=== PATIENT | female | born 1990 | race Caucasian/White ===

== ENCOUNTER → 2019-06-14 11:20 | Outpatient (BNVA) | payer BC, SELFPAY | PROVIDERS: Family Provider Nurse Practitioner Family; Visit Provider Nurse Practitioner Women's Health | DX: O99.89 Other specified diseases and conditions complicating pregnancy, childbirth and the puerperium (principal); R82.71 Bacteriuria; Z28.3 Underimmunization status | CPT/HCPCS: 81000; 87086 ==

== ENCOUNTER → 2019-07-15 09:02 | Outpatient (BNVA) | payer BC, SELFPAY | PROVIDERS: Family Provider Nurse Practitioner Family; Visit Provider Obstetrics & Gynecology | DX: O99.89 Other specified diseases and conditions complicating pregnancy, childbirth and the puerperium (principal); Z3A.21 21 weeks gestation of pregnancy | CPT/HCPCS: 76805 ==

== ENCOUNTER → 2019-07-19 12:49 | Outpatient (BNVA) | payer BC, SELFPAY | PROVIDERS: Family Provider Nurse Practitioner Family; Visit Provider Obstetrics & Gynecology | DX: Z01.89 Encounter for other specified special examinations (principal) | CPT/HCPCS: 84315 ==

== ENCOUNTER → 2019-08-12 15:20 | Outpatient (BNVA) | payer BC, SELFPAY | PROVIDERS: Family Provider Nurse Practitioner Family; Visit Provider Obstetrics & Gynecology Female Pelvic Medicine and Reconstructive Surgery | DX: O99.89 Other specified diseases and conditions complicating pregnancy, childbirth and the puerperium (principal); Z28.3 Underimmunization status | CPT/HCPCS: 84315; 87086 ==

== ENCOUNTER → 2019-09-09 14:54 | Outpatient (BNVA) | payer BC, SELFPAY | PROVIDERS: Family Provider Nurse Practitioner Family; Visit Provider Obstetrics & Gynecology Female Pelvic Medicine and Reconstructive Surgery | DX: O26.892 Other specified pregnancy related conditions, second trimester (principal); Z67.91 Unspecified blood type, Rh negative; Z34.02 Encounter for supervision of normal first pregnancy, second trimester; Z34.03 Encounter for supervision of normal first pregnancy, third trimester; O99.89 Other specified diseases and conditions complicating pregnancy, childbirth and the puerperium; Z28.3 Underimmunization status; O26.899 Other specified pregnancy related conditions, unspecified trimester | CPT/HCPCS: 82950; 85027; 86850 ==

== ENCOUNTER → 2019-09-16 08:15 | Outpatient (BNVA) | payer BC, SELFPAY | PROVIDERS: Family Provider Nurse Practitioner Family; Visit Provider Obstetrics & Gynecology | DX: O99.810 Abnormal glucose complicating pregnancy (principal) | CPT/HCPCS: 82951; 82952 ==

== ENCOUNTER → 2019-11-04 13:16 | Outpatient (BNVA) | payer BC, SELFPAY | PROVIDERS: Family Provider Nurse Practitioner Family; Visit Provider Obstetrics & Gynecology | DX: Z34.03 Encounter for supervision of normal first pregnancy, third trimester (principal) | CPT/HCPCS: 84315; 87081 ==

== ENCOUNTER → 2019-11-26 14:09 | Outpatient (BNVA) | payer OTHER, SELFPAY | PROVIDERS: Family Provider Nurse Practitioner Family; Visit Provider Obstetrics & Gynecology | DX: Z34.03 Encounter for supervision of normal first pregnancy, third trimester (principal); Z3A.39 39 weeks gestation of pregnancy | CPT/HCPCS: 76816 ==

== ENCOUNTER 2019-11-30 04:10 | Outpatient (CLI) | payer OTHER, SELFPAY ==
[2019-11-30 04:38] VITALS: BP 140/76; PULSE 60
[2019-11-30 04:41] VITALS: BMI 30.1
[2019-11-30 05:08] VITALS: BP 121/75; PULSE 77
[2019-11-30 05:37] VITALS: BP 140/73; PULSE 67
[2019-11-30 06:07] VITALS: BP 0/0
[2019-11-30 06:09] VITALS: BP 133/73; PULSE 59
[2019-11-30 06:17] VITALS: BP 133/73; PULSE 59; RESP 17; TEMP 36.7
== END 2019-11-30 06:19 | disposition home or self-care (01) ==
LOC: OPOB 04:29 → OBGYN 04:29
PROVIDERS: Family Provider Nurse Practitioner Family; Visit Provider Obstetrics & Gynecology
DX: O26.899 Other specified pregnancy related conditions, unspecified trimester (principal); Z3A.00 Weeks of gestation of pregnancy not specified
CPT/HCPCS: 99211

== ENCOUNTER 2019-12-01 12:57 | Inpatient (IN) | payer OTHER, SELFPAY ==
[2019-12-01] VITALS (68 sets, daily range): BP systolic 0–150; BP diastolic 0–85; PULSE 57–88; RESP 16–18; TEMP 36.4–37.7; O2SAT 97–98; BMI 30.8
[2019-12-01 13:44] LABS: Basophils % 0.3 %; Eosinophils % 0.2 %; Hematocrit 35.2 % (37.0-47.0); Lymphocytes # 2.4 10^3/uL (0.8-4.8); Lymphocytes % 16.6 %; Mean Corpuscular HGB Conc 34.1 g/dL (30.0-36.0); Mean Corpuscular Hemoglobin 31.6 pg (28.0-34.0); Mean Corpuscular Volume 92.6 fL (81-99); Monocytes # 0.8 10^3/uL (0.2-0.9); Monocytes % 5.6 %; Neutrophils # 10.9 10^3/uL (1.8-7.7); Neutrophils % 75.8 %; Nucleated Red Blood Cells % 0 %; Platelet Count 220 10^3/cmm (130-400); Red Cell Distribution Width 12.6 % (12.1-15.1); White Blood Count 14.4 10^3/uL (4.0-10.0)
[2019-12-01] MEDS: lactated ringers 1,000 ML 999 ML IV ×2 (16:06→17:26)
--- NOTE | 2019-12-01 17:37 | P.ANESASSM_ITS ---
Pre-Anesthetic Assessment Pre-Anesthetic Assessment: Height/Weight: Height 1.78 m Weight 97.522 kg Temp Pulse Resp BP Pulse Ox 97.5 F L 80 17 111/65 97 12/01/19 14:42 12/01/19 17:33 12/01/19 14:42 12/01/19 17:33 12/01/19 17:18 Preop Diagnosis: IUP Proposed Procedure: epdiural Familial anesthetic complications: None Was Beta Ade taken within 24 hours: N/A Last intake: 1130 Social: Social History: No alcohol and No tobacco Exam: Pre-Anes Outpt Exam: alert, oriented x 3, clear to auscultation bilaterally and regular rate & rhythm Airway: Cervical ROM: WNL MP: 2 Dentition: Full Anesthetic Plan: ASA status: 2 Anesthesia: Regional (specify below) Risk of > 500 ml blood loss (7ml/kg in children): Yes, adequate IV access and fluids planned Meds/Allergies Current Medications: Current Medications Generic Name Dose Route Start Last Admin Trade Name Freq PRN Reason Stop Dose Admin Lactated Ringer's 1,000 mls @ 999 m ls/hr 12/01/19 12:54 12/01/19 17:26 Lactated Ringers IV 999 mls/hr .Q1H1M PRN Administration Per L&D Rescitati on Protocol Ropivacaine 200 mg in 100 mls @ 13 mls/hr 12/01/19 16:00 12/01/19 17:27 Naropin Premix EPIDURAL 13 mls/hr .Q7H42M BECKY Administration PFSH Anesthesia PFSH: Medical History Patient denies medical problems Denies history of: htn,dm,heart,lung,liver,kidney,thyroid,dvt/pe, herpes Partner without herpes history PCP: [facility] Surgical History History of dilation and curettage Dilation and curettage with suction in first trimester for missed ?by Dr. Potter Family History Grandfather Diabetes Paternal Hypertension maternal Heart disease maternal Mother Hypertension Social History Smoking and tobacco status: never smoked Alcohol intake: former Former alcohol use details: Socially, before finding out she was . Female Reproductive History: : 1 Data Anesthesia CBC & Chem 7: 12/01/19 13:05 Other Labs: Laboratory Results - last 48 hr 12/01/19 13:05 WBC 14.4 H RBC 3.80 L Hgb 12.0 Hct 35.2 L MCV 92.6 MCH 31.6 MCHC 34.1 RDW 12.6 Plt Count 220 MPV 12.0 H Neut % (Auto) 75.8 Lymph % (Auto) 16.6 [place] % (Auto) 5.6 Eos % (Auto) 0.2 Baso % (Auto) 0.3 Neut # (Auto) 10.9 H Lymph # (Auto) 2.4 [place] # (Auto) 0.8 Eos # (Auto) 0.0 Baso # (Auto) 0.0 Nucleated RBC % (auto) 0 Nucleated RBCs # 0.0 Cardiac Studies: No Data to Display
--- NOTE | 2019-12-01 17:38 | ANES.PROC ---
Anesthesia Procedures Procedure/Date: 12/01/19 Epidural: Time Out Performed: Yes Consents Signed: Procedure Consent Consent: requested by attending/covering physician, from patient, risks and benefits reviewed and patient agrees to proceed Lumbar Level: L3-L4 Epidural position: sitting Epidural procedure: sterile prep of area, 1% lidocaine to numb the area, 18 g needle, negative for paresthesia passed, neg for paresthesia, test dose given (3 ml), 1.5% xylocaine 1:200k epi (3 ml), placed PCEA, no systemic response, sterile dressing applied, L.U.D. no apparent complications and 0.2% Ropiavacaine @ mls/hr (13 mls/hr) Additional Comments: GRZEGORZ at 6 cm, threaded to 11 cm Dosed epidural w/ bupivicaine 0.25% 8 cc + fentanyl 100 mcg Patient had pain free contraction after bolus
[2019-12-01] MEDS: dextrose 5%-lactated ringers 1,000 ML 125 ML IV (21:13)
[2019-12-02] VITALS (53 sets, daily range): BP systolic 0–140; BP diastolic 0–76; PULSE 54–84; RESP 16–18; TEMP 36.6–37.9; O2SAT 97
[2019-12-02] MEDS: ondansetron 2 mg/ML SDV 2 mL 4 MG IVP (02:18)
[2019-12-02] MEDS: fentaNYL 50 mcg/mL INJ 2mL IV (02:43)
[2019-12-02] MEDS: acetaminophen 325 mg Tablet 650 MG PO (04:50)
[2019-12-02] MEDS: dextrose 5%-lactated ringers 1,000 ML 125 ML IV (05:08)
[2019-12-02] MEDS: oxytocin 30 UNIT/500 ML BAG 600 UNIT IV (08:16)
--- NOTE | 2019-12-02 08:30 | PM.DELIVERY ---
Delivery Note: Date of delivery: December 02, 2019 Pre-delivery diagnoses: Term Post-delivery diagnoses: Term delivered Procedure: Spontaneous vaginal delivery Op report anesthesia: Epidural Delivering Physician: Brian Shabazz M.D. Estimated blood loss (mL): 500 Findings: Baby girl, Apgars 8/9, weight 3705g Delivery: The patient was noted to be complete and pushing, so was placed in the dorsal lithotomy position, prepped and draped in the usual sterile fashion for a vaginal delivery. Pt. Noted to have epidural anesthesia. At 0806 the patient delivered a Viable At 38 weeks female weighing 3705 g with scores of 8 and 9 at one and five minutes, respectively. The vertex was delivered spontaneously over Intact perineum. The patient was asked to push and the head delivered spontaneously in the MICHEL position, over an intact perineum. A nuchal cord was checked and 1 noted, and Delivered through around head as necessary. The anterior shoulder delivered easily and the posterior shoulder followed. The remainder of the infant was easily delivered and the oropharynx and nasopharynx was bulb suctioned. The infant was noted to have spontaneous cry and spontaneous movement of all four extremities. The cord was clamped x 2 and cut and noted to have 2 arteries and one vein. The infant was passed to the Mother's abdomen where Nursing personnel were in attendance. Cord blood sample was then obtained. The placenta delivered intact with Manual extraction and the uterus was explored. 20 units of Pitocin was placed in the IV bag to firm the uterus. Examination of the cervix and vaginal vault did not reveal any lacerations. A vaginal pack was then placed. Examination of the perineum showed No lacerations. The vaginal pack was then removed. The patient tolerated this procedure well, and recovered in L&D with her infant [facility]. All sponge and needle counts were correct. A&P Assessment and plan (1) Term delivered: Status: Acute Coding Level of Care Code Acute Plastics Supervisor for Chg Fwd Diagnoses Term delivered O80
[2019-12-02] MEDS: benzocaine-menthol 78 gm Canister 1 SPRAY TOPICAL (09:38)
[2019-12-02] MEDS: docusate sodium 100 mg Capsule PO ×2 (09:38→16:49)
[2019-12-02] MEDS: lanolin oint 7 gm 1 APPLIC TOPICAL (09:38)
[2019-12-02] MEDS: prenatal vitamin Capsule 1 CAP PO (09:38)
[2019-12-02 20:50] LABS: Hematocrit 33.3 % (37.0-47.0); Hemoglobin 11.1 g/dL (11.5-15.3); Mean Corpuscular HGB Conc 33.3 g/dL (30.0-36.0); Mean Corpuscular Hemoglobin 32.1 pg (28.0-34.0); Mean Corpuscular Volume 96.2 fL (81-99); Mean Platelet Volume 11.9 fL (7.4-10.4); Platelet Count 186 10^3/cmm (130-400); Red Blood Count 3.46 10^6/uL (4.1-5.3); Red Cell Distribution Width 12.8 % (12.1-15.1); White Blood Count 23.8 10^3/uL (4.0-10.0)
[2019-12-03 04:15] VITALS: BP 147/85; PULSE 59; RESP 16; TEMP 36.8; O2SAT 96
[2019-12-03] MEDS: docusate sodium 100 mg Capsule PO (08:51)
[2019-12-03] MEDS: prenatal vitamin Capsule 1 CAP PO (08:51)
[2019-12-03 11:04] VITALS: BP 114/66; PULSE 55; RESP 16; TEMP 36.7; O2SAT 97
--- NOTE | 2019-12-03 13:36 | PC.NURSE ---
Received verbal consent from pt for Rhogam injection. Gave injection IM in right deltoid. Maya Walker RN
[2019-12-03 13:45] VITALS: BP 120/75; PULSE 63; RESP 16; TEMP 36.7; O2SAT 97
--- NOTE | 2019-12-03 16:19 | P.DS_ITS ---
Discharge Providers CIRCULAR RIPSAW OPERATOR Date of Admission: 12/01/19 12:57 Date of Discharge: 12/03/19 Attending Provider at Admission: Brian Shabazz MD Attending Provider at Discharge: Brian Shabazz MD Diagnoses at Discharge Discharge Diagnosis (1) Term delivered: Status: Acute Problem details: Status post spontaneous vaginal delivery day 1 Reason for Visit Reason for Visit: Abdominal pain Hospital Course Hospital Course: The patient is a 29yo at 40 weeks +3 days weeks EGA who has been receiving care from [facility]. She has been experiencing painful uterine contractions for the past 4 hours. The contractions are occurring at 5 minute intervals with approximately 30 second duration. She continues to feel movement between the contractions. She denies vaginal bleeding or rupture of membranes. LMP: 03/22/2019 Estimated date of confinement: 11/27/2019 CC: Onset of labor at term. HPI: Received appropriate care. Daily vitamins since start a care. labs have all been normal, including negative for HIV. She was found to Negative for Group B Strep from screening at 36 weeks. She has gained approximately 9.7 kg throughout the . She denies a history of HTN during . Glucose tolerance screening for gestational diabetes was negative. The patient progressed to have a spontaneous vaginal delivery of a baby girl Apgars 8/9 with weight of 3705 g. She is afebrile hemodynamically stable. Tolerating diet well. Ambulating without difficulty. Information Peripartum Data: Infant Delivery Method: Vaginal Physical Exam Narrative: EXAM NARRATIVE: GA; alert and oriented x 3 HEENT: normal Breasts: engorged Nipples - skin intact Lungs; clear to auscultation Heart: regular rhythm, no murmurs. Abd: Appropriately tender. BS+. Uterine fundus below umbilicus. No Fundal Tenderness. Perineum: normal lochia. Extremities: no edema, no cyanosis, no tenderness. Urinary Catheter Management^: Manley Latex: Cath Placed During This Visit: yes Urinary Catheter Date of Insertion: 12/01/19 Urinary Catheter Time of Insertion: 18:00 Discharge Data Data Completed and Pending: Labs from last 24 hours 12/02/19 12/02/19 12/01/19 20:28 20:28 13:05 WBC 23.8 H RBC 3.46 L Hgb 11.1 L Hct 33.3 L MCV 96.2 MCH 32.1 MCHC 33.3 RDW 12.8 Plt Count 186 MPV 11.9 H Blood Type A Negative Rho(D) Type Negative Antibody Screen Positive Antibody Identific ation Anti-D Screen Negative Vitals: Last Vital Signs Temp 98.0 F 12/03/19 13:45 Pulse 63 12/03/19 13:45 Resp 16 12/03/19 13:45 BP 120/75 12/03/19 13:45 Pulse Ox 97 12/03/19 13:45 Discharge Plan Discharge Patient Disposition: Home, Self-Care Condition: Stable Prescriptions: New acetaminophen 325 mg Tablet 650 mg PO Q6H PRN (Reason: Mild pain or temp > 100.4) Qty: 60 RF: 0 ibuprofen 800 mg Tablet 800 mg PO TID Qty: 60 RF: 0 docusate sodium 100 mg Capsule 100 mg PO BID Qty: 60 RF: 0 Continued prenat.vits,beck,[id number]-htcr-spqlf Tablet 1 tab PO DAILY RF: 0 ferrous sulfate [FeroSul] 325 mg (65 mg iron) tablet 325 mg PO BID RF: 0 Discharge Orders: Discharge Order (Routine); Ordered 12/03/19 Ordered By: Brian Shabazz Referrals: Brian Shabazz MD [Physician] - 01/14/20 7:45 am Discharge Diet: Regular Discharge Activity: Increase activity as tolerated Patient Instructions: Your Baby (GEN), and the Working Mom (GEN), Expression, Collection and Storage of Breastmilk (GEN), How to Hold and Breastfeed Your Baby (GEN), and Nipple Soreness (GEN), Breast Fullness Versus Breast Engorgement (GEN), and Plugged Ducts (GEN), How to Increase Your Milk Supply (GEN), How to Tell if Your Baby is Getting Enough Breast Milk (GEN), and Your Diet (GEN), How Long Should I Breastfeed and How do I Wean? (GEN), Breast Care for the Breast Feeding Mother (GEN), OB Discharge Report, OB Food/Drug Interaction Guide, OB Vaginal Deliveries - [facility] Activity Restrictions/Additional Instructions: Pelvic rest for 6 weeks (no sex, no tampons, no vaginal douches). Return to the emergency room if any fever, increased bleeding or pain. Discharge Attestations CIRCULAR RIPSAW OPERATOR Time Spent in Discharge Care*: greater than 30 min Specific Discharge Activities: Specific discharge activities: educating patient Coding Level of Care Code Acute Ware Dresser for Chg Fwd Diagnoses Term delivered O80
[2019-12-03] MEDS: measles,mumps,rubella pf Vial (w/diluent) 0.5 ML SUBCUT (16:42)
[2019-12-03 17:00] VITALS: BP 134/77; PULSE 61; RESP 16; TEMP 36.8; O2SAT 99
== END 2019-12-03 17:10 | disposition home or self-care (01) | DRG 807 ==
LOC: OBGYN 12-02 07:38 → OPOB 12-02 07:38
PROVIDERS: Admitting Provider Obstetrics & Gynecology; Family Provider Nurse Practitioner Family; Visit Provider Obstetrics & Gynecology
DX: O69.81X0 Labor and delivery complicated by cord around neck, without compression, not applicable or unspecified (principal); Z37.0 Single live birth; Z3A.40 40 weeks gestation of pregnancy
CPT/HCPCS: 12345; 36415; 51702; 59025; 59409; 80500; 85025; 85027; 85460; 86850; 86870; 86900; 90384; 90707; 96372; 96374; 96375; 98960; 99211; J2405; J2795; J3010

== ENCOUNTER → 2020-01-14 08:31 | Outpatient (BNVA) | payer OTHER, SELFPAY | PROVIDERS: Family Provider Nurse Practitioner Family; Visit Provider Obstetrics & Gynecology | DX: Z12.4 Encounter for screening for malignant neoplasm of cervix (principal) | CPT/HCPCS: 88175 ==

== ENCOUNTER → 2020-10-28 14:47 | Outpatient (BNVA) | payer OTHER, SELFPAY | PROVIDERS: Family Provider Nurse Practitioner Family; PCP Nurse Practitioner Family; Visit Provider Nurse Practitioner Family | DX: R10.9 Unspecified abdominal pain (principal); R19.7 Diarrhea, unspecified; K92.1 Melena; R10.84 Generalized abdominal pain | CPT/HCPCS: 80053; 85025; 87506 ==

== ENCOUNTER → 2020-11-03 09:13 | Outpatient (BNVA) | payer OTHER, SELFPAY | PROVIDERS: Family Provider Nurse Practitioner Family; PCP Nurse Practitioner Family; Visit Provider Nurse Practitioner Family | DX: R19.7 Diarrhea, unspecified (principal); B96.23 Unspecified Shiga toxin-producing Escherichia coli [E. coli] [STEC] as the cause of diseases classified elsewhere; B96.22 Other specified Shiga toxin-producing Escherichia coli [E. coli] [STEC] as the cause of diseases classified elsewhere | CPT/HCPCS: 80053; 85025; 87506 ==

== ENCOUNTER → 2021-09-14 08:23 | Outpatient (BNVA) | payer OTHER, SELFPAY | PROVIDERS: PCP Nurse Practitioner Family; Visit Provider Obstetrics & Gynecology | DX: Z34.82 Encounter for supervision of other normal pregnancy, second trimester (principal) | CPT/HCPCS: 82950; 84315; 87086 ==

== ENCOUNTER → 2021-10-12 16:02 | Outpatient (BNVA) | payer OTHER, SELFPAY | PROVIDERS: PCP Nurse Practitioner Family; Visit Provider Obstetrics & Gynecology | DX: O26.899 Other specified pregnancy related conditions, unspecified trimester (principal); Z67.91 Unspecified blood type, Rh negative; O23.42 Unspecified infection of urinary tract in pregnancy, second trimester; Z3A.00 Weeks of gestation of pregnancy not specified | CPT/HCPCS: 84315; 85027; 86850 ==

== ENCOUNTER → 2021-11-12 14:40 | Outpatient (BNVA) | payer OTHER, SELFPAY | PROVIDERS: Visit Provider Obstetrics & Gynecology | DX: O26.843 Uterine size-date discrepancy, third trimester (principal); Z3A.00 Weeks of gestation of pregnancy not specified | CPT/HCPCS: 81000 ==

== ENCOUNTER → 2021-11-22 16:10 | Outpatient (BNVA) | payer OTHER, SELFPAY | PROVIDERS: Visit Provider Obstetrics & Gynecology | DX: Z34.03 Encounter for supervision of normal first pregnancy, third trimester (principal) | CPT/HCPCS: 84315; 87086 ==

== ENCOUNTER 2021-11-26 14:57 | Outpatient (CLI) | payer OTHER, SELFPAY ==
--- NOTE | 2021-11-26 15:15 | US_ITS ---
WS: [email or web address] LIMITED OBSTETRICAL ULTRASOUND HISTORY: O26.843 - Uterine size-date discrepancy, third trimester COMPARISON: 05/31/2021 and 08/11/2021 Presentation: Vertex. Cervix: Closed and normal length. Placenta: Posterior and fundal. No previa. Grade: 2 HEART: FHR of 133 BPM. measurements: BPD = 9.0 cm = 36w4d; 94th percentile. HC = 32.2 cm = 36w3d; 66th percentile. AC = 31.5 cm = 35w3d; 82nd percentile. FL = 6.9 cm = 35w4d; 71st percentile. BERNICE: 7.3 cm; near the 5th percentile for age. EFW: 2747 g; 82 %. AGA by ultrasound: 36w0d TORSTEN by ultrasound: 12/24/2021 Measurements are internally concordant. No growth asymmetry. US/US OB limited [id number] IMPRESSION: 1. Single intrauterine gestation of 36 weeks 0 days with an EDC of 12/24/2021. 2. Estimated weight at the 82nd percentile. 3. Oligohydramnios. Low amniotic fluid index. BERNICE near the 5th percentile for age. Notified Brian Shabazz MD at 11/26/2021 4:23 PM.
--- NOTE | 2021-11-26 16:00 | US_ITS ---
WS: [email or web address] RENAL ULTRASOUND HISTORY: R10.9 - Unspecified abdominal pain COMPARISON: None available. TECHNIQUE: 2-D and color Doppler imaging of the kidney submitted. Right kidney: 11.5 cm x 6.8 cm x 6.3 cm. RIGHT kidney is normal size. Moderate to severe hydronephrosis. Renal cortex appears mildly edematous . Left kidney: 12.3 cm x 4.8 cm x 6.2 cm. Normal echogenicity with no hydronephrosis or mass. Aorta: Normal. Urinary Bladder: Normal distention. US/US renal BI* [id number] IMPRESSION: 1. Moderate to severe RIGHT hydronephrosis probably due to the gravid state of the patient. 2. LEFT kidney is negative.
== END 2021-11-26 14:58 | disposition home or self-care (01) ==
LOC: RAD 14:59
PROVIDERS: Visit Provider Obstetrics & Gynecology
DX: O26.843 Uterine size-date discrepancy, third trimester (principal); O99.891 Other specified diseases and conditions complicating pregnancy; N13.30 Unspecified hydronephrosis; Z3A.36 36 weeks gestation of pregnancy
CPT/HCPCS: 76770; 76805; 76815

== ENCOUNTER 2021-12-01 12:35 | Outpatient (CLI) | payer OTHER, SELFPAY ==
--- NOTE | 2021-12-01 12:45 | US_ITS ---
WS: [email or web address] BIOPHYSICAL PROFILE AMNIOTIC FLUID HISTORY: O41.03X0 - Oligohydramnios, third trimester, COMPARISON: 11/26/2021 Cardiac activity: 124 bpm. Cervix: Completely obscured by the head. Position: Vertex. Placenta: Posterior and fundal, no previa. Placenta grade: 2 Parameters are as follows: Breathin Movement: 2 Tone: 2 Fluid volume: 2 An occluded index: 6.4 cm. Largest vertical pocket of amniotic fluid 2.5 cm. US/US OB BPP wo NST [id number] IMPRESSION: 1. Biophysical profile score: 8/8. 2. Oligohydramnios. Continued oligohydramnios as also noted on 11/26/2021.
== END 2021-12-01 12:36 | disposition home or self-care (01) ==
PROVIDERS: Visit Provider Obstetrics & Gynecology
DX: O41.03X0 Oligohydramnios, third trimester, not applicable or unspecified (principal); Z3A.00 Weeks of gestation of pregnancy not specified
CPT/HCPCS: 76819

== ENCOUNTER 2021-12-10 17:57 | Outpatient (CLI) | payer OTHER, SELFPAY ==
[2021-12-10] VITALS (9 sets, daily range): BP systolic 112–135; BP diastolic 59–83; PULSE 63–80; RESP 17; BMI 31.2
[2021-12-10 19:14] LABS: Nitrazine Paper, PH Negative
== END 2021-12-10 20:12 | disposition home or self-care (01) ==
LOC: OPOB 17:57 → OBGYN 18:01
PROVIDERS: Visit Provider Obstetrics & Gynecology
DX: O26.899 Other specified pregnancy related conditions, unspecified trimester (principal); Z3A.00 Weeks of gestation of pregnancy not specified; N89.8 Other specified noninflammatory disorders of vagina
CPT/HCPCS: 59025; 83986; 99211

== ENCOUNTER → 2021-12-21 08:45 | Outpatient (BNVA) | payer OTHER, SELFPAY | PROVIDERS: Visit Provider Obstetrics & Gynecology | DX: O41.00X0 Oligohydramnios, unspecified trimester, not applicable or unspecified (principal); Z3A.00 Weeks of gestation of pregnancy not specified | CPT/HCPCS: 84315; 87081 ==

== ENCOUNTER 2021-12-21 10:10 | Outpatient (CLI) | payer OTHER, SELFPAY ==
[2021-12-21 10:10] VITALS: BMI 32.3
--- NOTE | 2021-12-21 10:17 | US_ITS ---
WS: [email or web address] BIOPHYSICAL PROFILE AMNIOTIC FLUID HISTORY: with BERNICE for low fluid COMPARISON: 12/01/2021 Cardiac activity: 133 bpm. Cervix: closed. Position: Vertex. Placenta: Posterior, no previa or abruption. Placenta grade: 2 Parameters are as follows: Breathin Movement: 2 Tone: 2 Fluid volume: 2 Amniotic fluid index: 8.9., Just above the 5th percentile for age. Largest vertical pocket of amnioti c fluid is 3.5 cm. US/US OB BPP wo NST 09503 IMPRESSION: 1. Biophysical profile score: 8/8. 2. Amniotic fluid index of 8.9 cm which is just above the 5th percentile. Sligh tly improved since the BERNICE of 6.3 cm on 12/01/2021.
[2021-12-21 10:20] VITALS: BP 120/69; PULSE 69
[2021-12-21 10:40] VITALS: BP 118/68; PULSE 71
[2021-12-21 10:50] VITALS: TEMP 36.2
== END 2021-12-21 11:30 | disposition home or self-care (01) ==
LOC: OPOB 10:13 → OBGYN 10:14
PROVIDERS: Visit Provider Obstetrics & Gynecology
DX: O41.00X0 Oligohydramnios, unspecified trimester, not applicable or unspecified (principal); Z3A.00 Weeks of gestation of pregnancy not specified
CPT/HCPCS: 76819; 99211

== ENCOUNTER 2021-12-27 15:17 | Outpatient (CLI) | payer OTHER, SELFPAY ==
--- NOTE | 2021-12-27 15:00 | US_ITS ---
WS: [email or web address] ULTRASOUND OB LIMITED TECHNIQUE: Limited ultrasound examination of the fetus. CLINICAL INFORMATION: O41.03X0 - Oligohydramnios, third trimester, not applicab... COMPARISON: December 21, 2021 FINDINGS: Cervix not well seen. Single interuterine gestation. presentation is vertex Placental location is fundal. Placenta grade: 3 heart rate 141 BPM. BERNICE 9.1 cm Biophysical profile 8 out of 8. breathin movement: 2 tone: 2 Amniotic fluid: 2 US/US OB BPP wo NST [id number] IMPRESSION: 1. Cervix not well seen 2. Presentation is vertex. 3. Placenta is fundal grade 3. 4. BERNICE 9.1 cm, greater than the 5th and less than the median for gestational a ge. Previously this measured 8.9 cm. 5. Normal biophysical profile 8 out of 8
== END 2021-12-27 15:18 | disposition home or self-care (01) ==
LOC: RAD 15:17
PROVIDERS: Visit Provider Obstetrics & Gynecology
DX: O41.03X0 Oligohydramnios, third trimester, not applicable or unspecified (principal)
CPT/HCPCS: 76819; 84315

== ENCOUNTER 2021-12-29 18:12 | Inpatient (IN) | payer OTHER, SELFPAY ==
[2021-12-29] VITALS (7 sets, daily range): BP systolic 121–126; BP diastolic 62–77; PULSE 54–69; RESP 17–18; TEMP 36.4; BMI 31.7
[2021-12-29] MEDS: miSOPROStol 100 mcg tablet 25 MCG VAGINAL ×2 (19:00→23:03)
[2021-12-29 19:34] LABS: Basophils % 0.4 %; Eosinophils # 0.1 10^3/uL (0.0-0.8); Eosinophils % 0.6 %; Hematocrit 34.4 % (37.0-47.0); Hemoglobin 11.4 g/dL (11.5-15.3); Lymphocytes # 2.8 10^3/uL (0.8-4.8); Lymphocytes % 26.3 %; Mean Corpuscular HGB Conc 33.1 g/dL (30.0-36.0); Mean Corpuscular Volume 93.5 fl (81-99); Mean Platelet Volume 12.9 fL (7.4-10.4); Monocytes # 0.6 10^3/uL (0.2-0.9); Monocytes % 5.1 %; Neutrophils # 7.17 10^3/uL (1.8-7.7); Neutrophils % 66.4 %; Nucleated Red Blood Cells % 0 %; Platelet Count 207 10^3/cmm (130-400); Red Blood Count 3.68 10^6/uL (4.1-5.3); Red Cell Distribution Width 12.8 % (12.1-15.1); White Blood Count 10.8 10^3/uL (4.0-10.0)
[2021-12-30] VITALS (16 sets, daily range): BP systolic 109–143; BP diastolic 59–78; PULSE 51–75; RESP 14–18; TEMP 36.6–36.8; O2SAT 96–97
[2021-12-30] MEDS: ondansetron 2 mg/ML SDV 2 mL 4 MG IVP (00:33)
[2021-12-30] MEDS: lactated ringers 1,000 ML 999 ML IV (01:26)
--- NOTE | 2021-12-30 02:04 | PM.OPHPUD ---
Labor & Delivery H&P Update Date of Procedure: December 30, 2021 Date H&P Performed: 12/27/21 H&P update information: I have reviewed H&P completed within last 30 days, I have examined patient prior to procedure and No changes to prior documentation Changes to previous documentation: The patient presents for induction at term for borderline oligohydramnios Admission Diagnosis: @ 39 weeks 1 day Preop diagnosis: IUP Related Problem List Diagnoses (1) Anemia affecting : (2) Rh negative, maternal: (3) Supervision of normal first in third trimester: (4) Rubella non-immune status, antepartum:
--- NOTE | 2021-12-30 02:06 | PM.DELIVERY ---
Delivery Note: Date of delivery: December 30, 2021 Pre-delivery diagnoses: iup@ 39w2d Post-delivery diagnoses: same-delivered Procedure: precipitous Delivering Physician: RN for Dr. Mcrae Estimated blood loss (mL): 10 Findings: term male in the cephalic presentation. Normal appearing placenta Pre-Delivery Course: The patient was admitted for induction at term. her cervix was 1/50/-4. She received a dose of cytotec and her cervix was unchanged. She received a second dose of cytotec and towards the end of the third hour, began to become uncomfortable. I was notified that she was 8 cm dilation and came immediately to the hospital. Prior to my arrival, the patient had SROM and precipitous delivery of the baby. Delivery: When I arrived, the baby was still attached to the cord and resting on his mothers chest. The cord was clamped and cut. The placenta delivered spontaneously. The placenta was intact. Cord blood was obtained. Inspection of the perineum revealed no lacerations. EBL 10 ml. Apgars 9 at 1 minute and 9 at 5 minutes. Mother and baby were stable post delivery. History History History 3 Term 1 Miscarriages/Ectopic 1 0 Living Children 1 Past Pregnancies Del. Date GA/Weeks Outcome Route Wt Inf Gender Labor Lgth Comp. Anesthesia Location 12/17/18 11 12/02/19 38 live - full term Vaginal [address] Shabazz at [facility] Delivery Date: 12/17/18 Last Updated by: Janiya Mccullough RN 11 week missed AB; twin measuring 8 weeks; D&C with suction Delivery Date: 12/02/19 Last Updated by: Gini Negrete RN epidural Coding Level of Care Code Acute Traffic Control Specialist for Chg Martha
[2021-12-30] MEDS: prenatal vitamin Capsule 1 CAP PO (09:21)
[2021-12-30] MEDS: docusate sodium 100 mg Capsule PO ×2 (09:21→20:43)
[2021-12-30] MEDS: ibuprofen 800 mg tablet PO ×3 (09:21→20:42)
[2021-12-30 14:50] LABS: Hematocrit 32.3 % (37.0-47.0); Hemoglobin 11.4 g/dL (11.5-15.3); Mean Corpuscular HGB Conc 35.3 g/dL (30.0-36.0); Mean Corpuscular Hemoglobin 31.8 pg (28.0-34.0); Mean Corpuscular Volume 90.2 fl (81-99); Mean Platelet Volume 12.5 fL (7.4-10.4); Platelet Count 192 10^3/cmm (130-400); Red Blood Count 3.58 10^6/uL (4.1-5.3); Red Cell Distribution Width 12.5 % (12.1-15.1); White Blood Count 16.8 10^3/uL (4.0-10.0)
[2021-12-31 04:24] VITALS: BP 107/61; PULSE 60; RESP 16; TEMP 36.7; O2SAT 97
[2021-12-31 05:18] VITALS: PULSE 119; RESP 38; TEMP 36.8
--- NOTE | 2021-12-31 08:22 | PM.DCS ---
Discharge Providers Date of Admission: 12/29/21 18:12 Date of Discharge: December 31, 2021 Attending Provider at Admission: Isis Mcrae MD Attending Provider at Discharge: Isis Mcrae MD Diagnoses at Discharge Discharge Diagnosis (1) Anemia affecting : Status: Acute Qualifiers: Trimester: third trimester Qualified Code(s): O99.013 - Anemia complicating , third trimester (2) Rh negative, maternal: Status: Acute (3) Supervision of normal first in third trimester: Status: Acute (4) Rubella non-immune status, antepartum: Status: Acute Reason for Visit Reason for Visit: induction Hospital Course Hospital Course the patient was admitted for induction at term. She labored off of her dose of cytotec and had a precipitous delivery. She did well and was ready for discharge on day #1 Physical Exam Narrative: no concerns today Const: COMMON NORMALS: no acute distress, patient oriented x3, no limitations, healthy appearing, alert and well nourished GENERAL APPEARANCE: cooperative, comfortable, well kempt and well developed ORIENTATION/CONSCIOUSNESS: Yes awake, Yes oriented to person, Yes oriented to place and Yes oriented to time Resp: COMMON NORMALS: normal respiratory effort EFFORT & INSPECTION: Yes able to speak in complete sentences GI: COMMON NORMALS: Soft to palpation and non-tender PALPATION: Yes Soft to palpation Extremity: COMMON NORMALS: no calf tenderness Neuro: COMMON NORMALS: patient oriented x3 SENSORIUM/ORIENTATION: Yes alert, Yes oriented to person, Yes oriented to place and Yes oriented to time Psych: APPEARANCE: Yes well kempt Discharge Data Studies Completed and Pending Laboratory Results WBC 16.8 10^3/uL (4.0-10.0) H 12/30/21 14:30 RBC 3.58 10^6/uL (4.1-5.3) L 12/30/21 14:30 Hgb 11.4 g/dL (11.5-15.3) L 12/30/21 14:30 Hct 32.3 % (37.0-47.0) L 12/30/21 14:30 MCV 90.2 fl (81-99) 12/30/21 14:30 MCH 31.8 pg (28.0-34.0) 12/30/21 14:30 MCHC 35.3 g/dL (30.0-36.0) D 12/30/21 14:30 RDW 12.5 % (12.1-15.1) 12/30/21 14:30 Plt Count 192 10^3/cmm (130-400) 12/30/21 14:30 MPV 12.5 fL (7.4-10.4) H 12/30/21 14:30 Neut % (Auto) 66.4 % 12/29/21 18:45 Lymph % (Auto) 26.3 % 12/29/21 18:45 [place] % (Auto) 5.1 % 12/29/21 18:45 Eos % (Auto) 0.6 % 12/29/21 18:45 Baso % (Auto) 0.4 % 12/29/21 18:45 Neut # (Auto) 7.17 10^3/uL (1.8-7.7) 12/29/21 18:45 Lymph # (Auto) 2.8 10^3/uL (0.8-4.8) 12/29/21 18:45 [place] # (Auto) 0.6 10^3/uL (0.2-0.9) 12/29/21 18:45 Eos # (Auto) 0.1 10^3/uL (0.0-0.8) 12/29/21 18:45 Baso # (Auto) 0.0 10^3/uL (0.0-0.1) 12/29/21 18:45 Nucleated RBC % (auto) 0 % 12/29/21 18:45 Nucleated RBCs # 0.0 /100WBC 12/29/21 18:45 Blood Type A Negative 12/29/21 18:45 Rho(D) Type Negative 12/29/21 18:45 Antibody Screen Positive 12/29/21 18:45 Antibody Identification Anti-D 12/29/21 18:45 Screen Negative (Negative) 12/30/21 14:30 Vitals Last Vital Signs Temp 98.2 F 12/31/21 05:18 Pulse 119 H 12/31/21 05:18 Resp 38 H 12/31/21 05:18 BP 107/61 12/31/21 04:24 Pulse Ox 97 12/31/21 04:24 O2 Del Method 12/31/21 04:24 Discharge Plan Discharge Patient Disposition: Home Condition: Stable Prescriptions: Continued prenat.vits,beck,[id number] Tablet 1 tab PO DAILY Discharge Orders: Discharge Order (Routine); Ordered 12/31/21 Ordered By: Isis Mcrae Patient Instructions: Opioid Safety Discharge Attestations Time Spent in Discharge Care*: less than 30 min Quality Metrics Clinical Quality Measures [ No reported AMI, CVA or VTE this stay] Coding Level of Care Code Acute Chg FW DC note Diagnoses Anemia affecting O99.013 Trimester: third trimester Rh negative, maternal O26.899; Z67.91 Supervision of normal first in third trimester Z34.03 Rubella non-immune status, antepartum O99.89; Z28.3
[2021-12-31] MEDS: prenatal vitamin Capsule 1 CAP PO (10:07)
[2021-12-31] MEDS: ibuprofen 800 mg tablet PO (10:07)
[2021-12-31] MEDS: docusate sodium 100 mg Capsule PO (10:07)
[2021-12-31] MEDS: measles,mumps,rubella pf Vial (w/diluent) 0.5 ML SUBCUT (10:21)
[2021-12-31 10:30] VITALS: BP 127/83; PULSE 60; RESP 16; TEMP 36.8; O2SAT 97
== END 2021-12-31 11:15 | disposition home or self-care (01) | DRG 806 ==
LOC: OPOB 18:13 → OBGYN 18:13
PROVIDERS: Admitting Provider Obstetrics & Gynecology; Visit Provider Obstetrics & Gynecology
DX: O62.3 Precipitate labor (principal); O36.0930 Maternal care for other rhesus isoimmunization, third trimester, not applicable or unspecified; Z37.0 Single live birth; O99.02 Anemia complicating childbirth; D64.9 Anemia, unspecified; Z3A.39 39 weeks gestation of pregnancy
CPT/HCPCS: 36415; 59409; 80503; 85025; 85027; 85460; 86850; 86870; 86900; 90384; 90707; 96372; J2405

== ENCOUNTER 2022-03-23 12:45 | Day surgery (SDC) | payer OTHER, SELFPAY ==
[2022-03-21 11:18] VITALS: BMI 29.8
[2022-03-21 11:49] LABS: Add Urine Microscopic? NO; Charge for UA Resulting for Rev
[2022-03-21 12:02] LABS: Bilirubin Urine Neg (Negative); Blood Urine Neg (Negative); Glucose Urine UA Norm (Normal); Ketones Urine Negative (Negative); Leukocyte Esterase Urine Negative (Negative); Nitrate Urine Negative (Negative); OR HCG Qualitative Urine Negative (Negative); Protein Urine Neg (Negative); Specific Gravity, Urine 1.005 (1.005-1.030); Urine Appearance Clear (CLEAR); Urine Color Straw (Yellow); Urobilinogen Urine Norm (Negative); pH Urine 7 (5-7)
[2022-03-21 12:11] LABS: Basophils % 0.4 %; Eosinophils # 0.1 10^3/uL (0.0-0.8); Eosinophils % 0.5 %; Hematocrit 37.8 % (37.0-47.0); Hemoglobin 12.5 g/dL (11.5-15.3); Lymphocytes # 3.2 10^3/uL (0.8-4.8); Lymphocytes % 32.5 %; Mean Corpuscular HGB Conc 33.1 g/dL (30.0-36.0); Mean Corpuscular Hemoglobin 30.2 pg (28.0-34.0); Mean Corpuscular Volume 91.3 fl (81-99); Mean Platelet Volume 11.4 fL (7.4-10.4); Monocytes # 0.6 10^3/uL (0.2-0.9); Monocytes % 5.7 %; Neutrophils # 5.94 10^3/uL (1.8-7.7); Neutrophils % 60.6 %; Nucleated Red Blood Cells % 0 %; Platelet Count 285 10^3/cmm (130-400); Red Blood Count 4.14 10^6/uL (4.1-5.3); Red Cell Distribution Width 11.9 % (12.1-15.1); White Blood Count 9.8 10^3/uL (4.0-10.0)
[2022-03-21 12:14] LABS: Alanine Aminotransferase 30 U/L (0-33); Albumin Level 4.9 g/dL (3.5-5.2); Alkaline Phosphatase 76 U/L (35-105); Aspartate Amino Transferase 22 U/L (0-32); Blood Urea Nitrogen 15 mg/dL (6-20); Calcium 9.5 mg/dL (8.5-10.5); Carbon Dioxide 22 mmol/L (22-29); Chloride 105 mmol/L (98-107); Globulin 3.1 g/dL (1.3-4.6); Glomerular Filtration Rate 83.1 mL/min (90-130); Glucose 83 mg/dL (65-115); Osmolality Calculated 284 mOsm/kg (285-295); Sodium 137 mmol/L (136-145); Total Bilirubin 0.3 mg/dL (0.15-1.2)
--- NOTE | 2022-03-21 12:24 | ANES.PREANE2 ---
Pre-Anesthetic Assessment Height/Weight: Height 1.78 m Weight 94.347 kg Preop Diagnosis: Desire permanent sterilization Operation Date: 03/23/22 11:55 Proposed Procedures p Laparoscopic bilateral salpingectomy 89457(Bilateral) - Brian Shabazz MD Familial anesthetic complications: None Social No alcohol and No tobacco Exam alert, oriented x 3, clear to auscultation bilaterally and regular rate & rhythm Airway Mallampati: Class I Dentition: full Anesthetic Plan ASA status: 1 Anesthesia: General Risk of > 500 ml blood loss (7ml/kg in children): No Medications/Allergies Home Medications Medication Instructions Recorded Confirmed Last Taken Type prenat.vits,beck,ktp-izss-alwgi 1 tab PO DAILY 06/12/19 03/21/22 12/21/21 07:00 History medroxyprogesterone 150 mg/mL 150 mg IM ONCE Contraception, 02/15/22 03/21/22 Unknown Rx intramuscular syringe abnormal uterine bleeding, (Depo-Provera) endometriosis #1 mL Allergies Allergy/AdvReac Type Severity Reaction Status Date / Time No Known Allergies Allergy Verified 03/21/22 09:01 [facility] Anesthesia Medical History (Updated 02/15/22 @ 14:50 by Brian Shabazz MD) Cervical cancer screening Patient denies medical problems Denies history of: htn,dm,heart,lung,liver,kidney,thyroid,dvt/pe, herpes Partner without herpes history PCP: [facility] Surgical History History of dilation and curettage Dilation and curettage with suction in first trimester for missed ?by Dr. Potter Family History Grandfather Diabetes Paternal Hypertension maternal Heart disease maternal Mother Hypertension Denies family history of Colon cancer Ovarian cancer Clotting disorder Hyperlipidemia Breast cancer Anesthesia complication Bleeding disorder Uterine cancer Thyroid condition Stroke Social History Smoking and tobacco status: never smoked Data Anesthesia : 03/21/22 11:28 03/21/22 11:28 Short CBC 03/21/22 Range/Units 11:28 WBC 9.8 (4.0-10.0) 10^3/uL Hgb 12.5 (11.5-15.3) g/dL Hct 37.8 (37.0-47.0) % MCV 91.3 (81-99) fl Plt Count 285 (130-400) 10^3/cmm Neut % (Auto) 60.6 % Neut # (Auto) 5.94 (1.8-7.7) 10^3/uL BMP 03/21/22 11:28 Sodium 137 Potassium 4.0 Chloride 105 Carbon Dioxide 22 BUN 15 Creatinine 0.8 Glucose 83 Calcium 9.5 Liver Function 03/21/22 Range/Units 11:28 Total Bilirubin 0.3 (0.15-1.2) mg/dL AST 22 (0-32) U/L ALT 30 (0-33) U/L Alkaline Phosphatase 76 (35-105) U/L Albumin 4.9 (3.5-5.2) g/dL Urine 03/21/22 Range/Units 11:33 Urine Color Straw (Yellow) Urine Appearance Clear (CLEAR) Urine pH 7 (5-7) Ur Specific [place] 1.005 (1.005-1.030) Urine Protein Neg (Negative) Urine Glucose (UA) Norm (Normal) Urine Ketones Negative (Negative) Urine Nitrate Negative (Negative) Urine Bilirubin Neg (Negative) Ur Leukocyte Esterase Negative (Negative) Cardiac Studies: No Data to Display
[2022-03-23 13:05] VITALS: BP 145/88; PULSE 56; RESP 18; TEMP 36.6; O2SAT 99
[2022-03-23] MEDS: scopolamine 1.5 Patch 1 PATCH TRANSDERMA (13:21)
[2022-03-23] MEDS: sodium chloride 0.9% 500 ML IV (13:21)
[2022-03-23] MEDS: sodium chloride 0.9% 1,000 ML 30 ML IV (13:21)
--- NOTE | 2022-03-23 14:18 | W.PM.OPSUD ---
Surgery/Procedure H&P Update DATE OF PROCEDURE: March 23, 2022 DATE H&P PERFORMED: 03/21/22 H&P UPDATE INFORMATION: I have reviewed H&P completed within last 30 days, I have examined patient prior to procedure and No changes to prior documentation PREOP DIAGNOSIS: Desire permanent sterilization PLANNED PROCEDURE: Operation Date: 03/23/22 14:35 Proposed Procedures p Laparoscopic bilateral salpingectomy 47395(Bilateral) - Brian Shabazz MD
[2022-03-23] MEDS: ceFAZolin 2,000 MG in sodium chloride 0.9% (plus) 50 ML 100 MG IV (14:27)
--- NOTE | 2022-03-23 15:13 | PM.OP ---
Operative Report Date of procedure: March 23, 2022 Pre-op diagnosis: Preop Diagnosis Desire permanent sterilization Post-op diagnosis: Same as above Post-op findings: Normal uterus and tubes and ovaries Procedure done: Laparoscopic bilateral salpingectomy Specimens removed/disposition: Left and right fallopian tube Surgeon: Brian Shabazz MD Estimated blood loss (mL): 10 IV fluids (mL): 1,000 Urine output (mL): 25 Complications: None Procedure: After informed consent, the patient was taken to the operating room where general anesthesia was administered. She was placed in the dorsal lithotomy position and prepped and draped in sterile fashion. Pre-Procedure Time-Out verifying the correct patient identity, correct procedure verified with consent, correct site and side, correct patient position, availability of correct implants and any special equipment or requirements was performed and acknowledge by the OR team. The patient was examined under anesthesia and found to have a normal uterus with normal adnexa. A weighted speculum was placed in the vagina, and the anterior lip of cervix was grasped with the single toothed tenaculum. A uterine manipulator was advanced into the endocervical canal and uterus. The tenaculum was removed after uterine manipulator was secured. The speculum was removed from the vagina. An intraumbilical incision was made with a scalpel. While tenting up on the abdomen, a Verres needle was admitted into the intra-abdominal cavity. A saline drop test was performed and noted to be within normal limits. Pneumoperitoneum was attained with 4 liters of carbon dioxide. The Verres needle was removed. A 5 mm Opitc view trocar and sleeve were admitted into the abdomen and laparoscopic confirmation of location was achieved. A second incision was made 3 cm above the symphysis pubis, and a 5 mm trocar sleeves were admitted into the abdomen under direct laparoscopic visualization without complication. A survey revealed normal abdominal anatomy with the exception of string adhesion to the right lower anterior abdominal wall. A 5 mm blunt probe was advanced through the second trocar sleeve, and light manipulation of ovaries and uterus to assess the posterior aspects was performed. The pelvic survey shows normal uterus, left and right adnexa. The left ovary was noted with a follicular cyst. The string adhesion was fulgurated and transected with good hemostasis with the Ligasure. The patient was placed into Trendelenburg position. The fallopian tubes were inspected bilaterally and the fimbriated ends of the fallopian tubes were visualized bilaterally. Attention was then directed to the right side. The fallopian tube and mesosalpinx were grasped and the underlying mesosalpinx was cauterized and cut using the Ligasure device. Serial cauterization and cutting was used to separate the fallopian tube from the underlying mesosalpinx until it could be amputated cutting it approximated 2 cm from the cornua. Attention was then turned to the contralateral fallopian tube, which was removed in similar fashion. Both specimens were removed through the trocar and sent to pathology. The instruments were removed. The suprapubic trocar port was removed under direct visualization insuring good hemostasis. The carbon dioxide was allowed to escape from the abdomen. The intraumbilical trocar sleeve was withdrawn under visualization with laparoscope in the sleeve to insure hemostasis. The skin incisions were closed with 3-O Monocryl subcuticular stich and Dermabond. The instruments were removed from the vagina, and excellent hemostasis was noted. The patient tolerated the procedure well, and sponge, lap and needle count were correct times two. The patient was taken to the recovery room in good condition.
[2022-03-23 15:29] VITALS: BP 146/75; PULSE 73; RESP 22; TEMP 36.7; O2SAT 99
[2022-03-23 15:35] VITALS: BP 140/77; PULSE 71; RESP 16; O2SAT 99
[2022-03-23 15:41] VITALS: BP 144/83; PULSE 59; RESP 16; O2SAT 98
[2022-03-23 15:53] VITALS: BP 143/79; PULSE 70; RESP 17; TEMP 36.7; O2SAT 98
[2022-03-23 16:26] VITALS: BP 140/86; PULSE 62; RESP 18; TEMP 36.7; O2SAT 95
[2022-03-23] MEDS: HYDROcodone-acetaminophen 5-325 mg Tablet 1 TAB PO (16:36)
--- NOTE | 2022-03-23 19:12 | ANE.PACU2 ---
Inpatient post-anesthesia follow up: Airway intact: Yes Vital signs: Temperature 98.1 F Pulse Rate 62 Respiratory Rate 18 Blood Pressure 140/86 Pulse Oximetry 95 Oxygen Delivery Me thod Room Air Oxygen Flow Rate 6 Fraction of Inspir ed Oxygen Hydration adequate: Yes Nausea and vomiting: No Pain level: 1 Mental status: Baseline
== END 2022-03-23 16:48 | disposition home or self-care (01) ==
PROVIDERS: Visit Provider Obstetrics & Gynecology
PROC: (CPT 58661; principal; 2022-03-23 14:25)
DX: Z30.2 Encounter for sterilization (principal)
CPT/HCPCS: 58661; 36415; 80053; 80503; 81003; 84703; 85025; 86850; 86870; 86900; 88302; J1100; J2250; J2405; J2710; J3010; J3490; J7030; J7040